=== PATIENT | female | born 1990 | race Caucasian/White ===

== ENCOUNTER → 2018-12-03 | Outpatient (CLI) | payer BC ==
[~2018-12-03] MED LIST: PRENATAL1 TA1 PO; PROCARDIA10 MG PO
== END ==
LOC: MC.RAD 07:30
DX: N63.14 Unspecified lump in the right breast, lower inner quadrant (principal); R92.2 Inconclusive mammogram
CPT/HCPCS: G0279

== ENCOUNTER → 2020-07-05 | Outpatient (CLI) | payer BC | LOC: COL.RAD 08:47 | DX: R10.11 Right upper quadrant pain (principal); R10.13 Epigastric pain ==

== ENCOUNTER 2021-02-05 23:58 | Emergency (ER) | payer BC ==
[~2021-02-05] VITALS: Ht 167.6 cm; Wt 68.2 kg
[2021-02-06] VITALS: TEMP 96.9
[2021-02-06 00:20] LABS: HEMATOCRIT 44.7 % (37.0-47.0); HEMOGLOBIN 14.5 g/dl (12.5-16.0); MEAN CELL VOLUME 93 fl (80.0-100.0); MEAN CORPUSCULAR HEMOGLOBIN 30 pg (27.0-31.0); MEAN CORPUSCULAR HGB CONC 32 g/dl (33.0-37.0); MEAN PLATELET VOLUME 8.9 fl (7.4-10.4); PLATELET COUNT 380 K/mm3 (130-400); RED BLOOD COUNT 4.79 M/mm3 (4.10-5.30); REDCELL DISTRIBUTION WIDTH-CV 12.3 % (11.5-14.5)
[2021-02-06 00:34] LABS: ALANINE AMINOTRANSFERASE 22 U/L (4-34); ALBUMIN 4.5 gm/dL (3.5-5.0); ALCOHOL(ethanol),MEDICAL 173 mg/dL; ALKALINE PHOSPHATASE 57 U/L (50-136); ANION GAP 15 mmol/L (7-16); AST,SGOT 29 U/L (15-37); BILIRUBIN,TOTAL < 0.1 mg/dL (0.0-1.0); BLOOD UREA NITROGEN 6 mg/dL (7-17); CALCIUM 8.7 mg/dL (8.4-10.2); CARBON DIOXIDE 19 mmol/L (22-30); CHLORIDE 111 mmol/L (98-107); CREATININE, serum 0.69 (0.52-1.25); GLUCOSE 110 mg/dL (74-106); LIPASE 102 U/L (23-300); POTASSIUM 3.3 mmol/L (3.4-5.0); SODIUM 145 mmol/L (137-145); TOTAL PROTEIN 8.1 gm/dL (6.4-8.2)
[2021-02-06 00:45] LABS: TROPONIN-I < 0.012 ng/mL (0.000-0.035)
[2021-02-06 00:46] LABS: BASOPHIL 1 % (0-2); LYMPHOCYTE 44 % (20.0-51.0); NEUTROPHILS 45 % (42.0-75.2)
[2021-02-06 01:41] LABS: TRICYCLIC ANTIDEPRESS URINE NEGATIVE
[2021-02-06 01:42] LABS: MUCOUS Present /lpf; PH 6 (5-8); SQUAMOUS EPITHELIAL 0-2 /hpf; URINE APPEARANCE Hazy; URINE BACTERIA Rare /hpf; URINE BILIRUBIN Negative (NEGATIVE); URINE BLOOD 1+ (NEGATIVE); URINE COLOR Straw; URINE GLUCOSE Negative (NEGATIVE); URINE KETONE Negative (NEGATIVE); URINE LEUKOCYTE ESTERASE 1+ (NEGATIVE); URINE NITRATE Negative (NEGATIVE); URINE PROTEIN(semi-quant) Negative (NEGATIVE); URINE RBC 0-2 /hpf; URINE UROBILINOGEN Negative (NEGATIVE)
[2021-02-06 01:55] LABS: COLLECTION METHOD CLEAN CATCH
[2021-02-06] MEDS ORDERED: PEPCID 20MG TAB20 MG PO (02:32)
[2021-02-06] MEDS ORDERED: ZOFRAN ODT4 MG PO (02:32)
[2021-02-06 02:55] VITALS: BP 110/68; PULSE 88
== END 2021-02-06 03:05 | disposition home or self-care (01) ==
LOC: COL.ER 23:58
PROVIDERS: Emergency Medicine
DX: F12.929 Cannabis use, unspecified with intoxication, unspecified (principal); Z32.02 Encounter for pregnancy test, result negative
CPT/HCPCS: J0780; J2405; J7030; Q9967

== ENCOUNTER 2021-02-15 10:21 | Day surgery (SDC) | payer BC ==
[2021-02-15] VITALS (8 sets, daily range): BP systolic 112–122; BP diastolic 74–83; PULSE 72–112; TEMP 98.2–98.3
[~2021-02-15] VITALS: Ht 162.6 cm; Wt 65.9 kg
[~2021-02-15 10:21] MED LIST changes: +PEPCID 20MG TAB20 MG PO; +ZOFRAN ODT4 MG PO
[2021-02-15] MEDS ORDERED: NUVARING VAG RING VG (10:56)
[2021-02-15] MEDS ORDERED: WELLBUTRIN XL150 MG PO (10:57)
--- NOTE | 2021-02-15 15:10 | NUR ---
Patient returns to room 5 per cart from PACU accompanied by Yari FISHMAN and is awake and alert. Temp 98.0. Siderails up x2 and call light in reach. Exofin skin glue noted on abdominal incisions x3. Bandaid on right lower quadrant noted. Aunt in room. Taking sips of water. Will allow patient to rest.
--- NOTE | 2021-02-15 15:25 | NUR ---
Resting and offers no complaints of pain or nausea. IV fluids continue to infuse.
[2021-02-15] MEDS ORDERED: MOTRIN 600600 MG/TAB PO (15:27)
[2021-02-15] MEDS ORDERED: NORCO 325 MG-51 TAB PO (15:27)
--- NOTE | 2021-02-15 15:40 | NUR ---
Resting and offers no complaints of pain or nausea.
--- NOTE | 2021-02-15 15:55 | NUR ---
Continues to rest with eyes closed. Family at bedside.
--- NOTE | 2021-02-15 16:10 | NUR ---
More awake and taking water. Offers no complaints of pain or nausea.
--- NOTE | 2021-02-15 16:30 | NUR ---
Eating muffin and drinking water.
--- NOTE | 2021-02-15 16:40 | NUR ---
Denies nausea and tolerated muffin and water.
--- NOTE | 2021-02-15 17:00 | NUR ---
Assisted up to the bathroom and gait steady. Tolerates activity well. Voids and returns to room.
--- NOTE | 2021-02-15 17:28 | NUR ---
Discharge instructions given and voices understanding of these.
--- NOTE | 2021-02-15 17:33 | NUR ---
Patient dismissed to home driven by spouse and taken to the emergency room entrance per wheelchair and assisted into vehicle driven by Aunt and Uncle. Discharge instructions in hand.
== END 2021-02-15 17:33 | disposition home or self-care (01) ==
LOC: SDCO 10:21
DX: K40.90 Unilateral inguinal hernia, without obstruction or gangrene, not specified as recurrent (principal); K21.9 Gastro-esophageal reflux disease without esophagitis; M62.08 Separation of muscle (nontraumatic), other site; G47.00 Insomnia, unspecified; F41.9 Anxiety disorder, unspecified; F32.9 Major depressive disorder, single episode, unspecified; Z90.89 Acquired absence of other organs; Z79.899 Other long term (current) drug therapy; Z82.49 Family history of ischemic heart disease and other diseases of the circulatory system; Z82.3 Family history of stroke; Z83.3 Family history of diabetes mellitus
CPT/HCPCS: C1781; J0690; J1100; J1170; J1200; J2405; J2704; J3010; J7120

== ENCOUNTER → 2021-04-02 | Outpatient (CLI) | payer BC ==
[~2021-04-02] MED LIST changes: +MOTRIN 600600 MG/TAB PO; +NORCO 325 MG-51 TAB PO; +NUVARING VAG RING VG; +WELLBUTRIN XL150 MG PO
== END ==
LOC: COL.RAD 13:30
DX: R10.31 Right lower quadrant pain (principal); Z98.890 Other specified postprocedural states

== ENCOUNTER → 2021-09-25 | Outpatient (CLI) | payer BC | LOC: COL.CARD 10:48 | DX: R00.2 Palpitations (principal) ==

== ENCOUNTER → 2023-06-05 | Outpatient (CLI) | payer BC ==
[~2023-06-05] MED LIST changes: +CEPHALEXIN500 M1 PO; +CYANOCOBAL1000 MCG/1 IM; +FLEXERIL 1010 MG/TAB PO; +INDERAL 10MG10 MG PO; +MASON NATURAL2000 IU PO; +MOBIC15 MG PO; +ROBAXIN 50500 MG/TAB PO; +TYLENOL 500MG500 MG PO
== END ==
LOC: COL.RAD 07:00
DX: M26.643 Arthritis of bilateral temporomandibular joint (principal); M05.741 Rheumatoid arthritis with rheumatoid factor of right hand without organ or systems involvement